=== PATIENT | female | born 1965 | race African-American/Black ===

== ENCOUNTER 2021-11-14 09:46 | Emergency (ER) | payer SELFPAY ==
[~2021-11-14] VITALS: Ht 157.5 cm; Wt 109.1 kg
[2021-11-14 09:54] VITALS: TEMP 98.1
[2021-11-14 10:28] LABS: STREP SCREEN NEGATIVE
[2021-11-14] MEDS ORDERED: AMOXICILLIN875 MG PO (10:52)
[2021-11-14 11:15] VITALS: BP 125/85; PULSE 81
== END 2021-11-14 11:15 | disposition home or self-care (01) ==
LOC: COL.ER 09:46
PROVIDERS: Physician Assistant
DX: J06.9 Acute upper respiratory infection, unspecified (principal); J40 Bronchitis, not specified as acute or chronic; H66.93 Otitis media, unspecified, bilateral; Z88.2 Allergy status to sulfonamides; Z20.822 Contact with and (suspected) exposure to COVID-19